=== PATIENT | male | born 1985 | race Asian ===

== ENCOUNTER 2023-11-14 07:22 | Inpatient (IN) | payer MEDICAID ==
[2023-11-14] VITALS (26 sets, daily range): BP systolic 120–165; BP diastolic 77–103; PULSE 76–111; RESP 13–22; TEMP 97.3–98.2; O2SAT 93–100
[~2023-11-14] VITALS: Ht 182.9 cm; Wt 106.6 kg
[~2023-11-14 07:22] MED LIST: NO HOME MEDS
[2023-11-14] MEDS: cefazolin 2gm/D5W 100mL 100 ML IV ONE (07:27)
[2023-11-14] MEDS: tranexamic acid inj. 1,000 MG in normal saline IV soln 100ML IV ONE (07:27)
[2023-11-14] MEDS: famotidine 20mg tablet PO ONE (08:36)
[2023-11-14 08:37] LABS: BASOPHILS % (AUTO) 0.7 % (0-1); EOSINOPHILS # (AUTO) 0.1 X10'3 (0-0.9); EOSINOPHILS % (AUTO) 2.3 % (0-6); LYMPHOCYTES # (AUTO) 2.2 X10'3 (1.1-4.8); MEAN CORPUSCULAR HEMOGLOBIN 29.8 PG (27.0-31.0); MEAN CORPUSCULAR HGB CONC 33.5 g/dL (33.0-36.5); MEAN CORPUSCULAR VOLUME 88.9 FL (78-98); MEAN PLATELET VOLUME 7.6 FL (7.4-10.4); MONOCYTES # (AUTO) 0.6 X10'3 (0-0.9); MONOCYTES % (AUTO) 10.3 % (2-12); NEUTROPHILS # (AUTO) 2.6 X10'3 (1.8-7.7); NEUTROPHILS % (AUTO) 46.7 % (42-75); PRE OP HEMATOCRIT 43.2 % (42.0-52.0); PRE OP HEMOGLOBIN 14.5 g/dL (14.0-17.9); PRE OP PLATELET COUNT 294 X10'3 (140-440); PRE OP WHITE BLOOD COUNT 5.5 10'3 (4.8-10.8); RED BLOOD COUNT 4.86 X10'6 (4.70-6.10); RED CELL DISTRIBUTION WIDTH 12.2 % (11.5-14.5)
[2023-11-14 08:57] LABS: PRE OP PROTIME 10.3 SECONDS (9.0-12.0)
[2023-11-14 09:27] LABS: ALANINE AMINOTRANSFERASE 72 U/L (12-78); ALBUMIN 3.6 G/DL (3.4-5.0); ALBUMIN/GLOBULIN RATIO 0.8 (1.1-1.5); ALKALINE PHOSPHATASE 114 IU/L (46-116); ANION GAP 6 (8-16); ASPARTATE AMINO TRANSFERASE 27 U/L (10-37); BILIRUBIN,TOTAL 0.3 MG/DL (0.1-1.0); BLOOD UREA NITROGEN 16 MG/DL (7-18); BUN/CREATININE RATIO 16.8 (10.0-20.0); CALCIUM 9.3 MG/DL (8.5-10.1); CHLORIDE 103 MMOL/L (99-107); CREATININE 0.95 MG/DL (0.60-1.10); GLUCOSE 101 MG/DL (70-104); POTASSIUM 3.8 MMOL/L (3.5-5.1); SODIUM 140 MMOL/L (135-145); TOTAL CARBON DIOXIDE 30.8 MMOL/L (24-32); TOTAL PROTEIN 7.9 G/DL (6.4-8.2); eCRCL 117 ML/MIN; eGFR 89 ML/MIN
[2023-11-14] MEDS ORDERED: fentaNYL/PF 50MCG/1 ML 2ML syringe ONE (10:36)
[2023-11-14] MEDS ORDERED: midazolam 1 mg/ML 2ml injection ONE (10:36)
[2023-11-14] MEDS ORDERED: bisacodyl 10mg suppository rectal RC PRN (10:40)
[2023-11-14] MEDS ORDERED: ondansetron/PF 4mg/2ml inj IV PRN (10:40)
[2023-11-14] MEDS ORDERED: diphenhydrAMINE 25mg capsule PO PRN (10:40)
[2023-11-14] MEDS ORDERED: magnesium hydroxide 30ml (MOM) UD suspension PO PRN (10:40)
[2023-11-14] MEDS ORDERED: acetaminophen 325mg tablet PO PRN (10:40)
[2023-11-14] MEDS ORDERED: naloxone 0.4 mg/ml inj IV PRN (10:40)
[2023-11-14] MEDS ORDERED: HYDROcodone/acetaminophen 5mg/325mg tablet PO PRN (10:40)
[2023-11-14] MEDS ORDERED: proCHLORperazine 10 MG/2 ml inj IV PRN (10:45)
[2023-11-14] MEDS ORDERED: morphine 2 MG/ML inj. syringe IV PRN (10:45)
[2023-11-14] MEDS ORDERED: ringers solution, lacted 1,000 ML IV SCH (10:45)
[2023-11-14] MEDS ORDERED: labetalol 20mg/4ml (5mg/ml) syringe IV PRN (10:45)
[2023-11-14] MEDS ORDERED: vancomycin 1,000mg inj ONE (10:45)
[2023-11-14] MEDS: acetaminophen 1,000mg/100ml IV 100 ML IV ONE (10:45)
[2023-11-14] MEDS ORDERED: meperidine/PF 25mg/ml syringe IV PRN ×3 (10:45)
[2023-11-14] MEDS ORDERED: hydrALAZINE 20mg/ml inj. IV PRN (10:45)
[2023-11-14] MEDS ORDERED: morphine 4 MG/ML inj SYRINge IV PRN (10:45)
[2023-11-14] MEDS ORDERED: sevoflurane 250ml liquid IH ONE (11:15)
[2023-11-14] MEDS ORDERED: LIDOcaine 1%/PF 5ML 10 MG/ML VIAL ONE (12:14)
[2023-11-14] MEDS ORDERED: ondansetron/PF 4mg/2ml inj ONE (12:14)
[2023-11-14] MEDS ORDERED: LIDOcaine 2% (20mg/ml) 5ml vial ONE (12:14)
[2023-11-14] MEDS ORDERED: fentaNYL /PF 50mcg/ml 5ml ampule ONE (12:14)
[2023-11-14] MEDS ORDERED: ROPIVAcaine 0.5% (5mg/ml) 30ml vial ONE (12:14)
[2023-11-14] MEDS ORDERED: dexamethasone sod phosphate 4mg/ml inj. ONE (12:14)
[2023-11-14] MEDS ORDERED: propofol inj 20 ML IV ONE (12:14)
[2023-11-14] MEDS ORDERED: rocuronium 10mg/ml inj IV ONE (12:14)
[2023-11-14] MEDS: ringers solution, lacted 1,000 ML IV SCH (15:04)
[2023-11-14] MEDS: ondansetron/PF 4mg/2ml inj IV PRN (18:45)
[2023-11-14] MEDS: cefazolin 2gm/D5W 100mL 100 ML IV SCH (19:42)
[2023-11-15] MEDS: HYDROcodone/acetaminophen 5mg/325mg tablet PO PRN (00:32)
[2023-11-15 02:00] VITALS: BP 124/93; PULSE 95; RESP 16; TEMP 98.3; O2SAT 98
[2023-11-15] MEDS: cefazolin 2gm/D5W 100mL 100 ML IV ONE (04:16)
[2023-11-15 06:00] VITALS: BP 147/94; PULSE 101; RESP 13; TEMP 97.5; O2SAT 99
[2023-11-15 07:01] VITALS: BP 154/102; PULSE 83
[2023-11-15 08:00] VITALS: RESP 13; O2SAT 99
[2023-11-15] MEDS ORDERED: HYDROcodone/acetaminophen 10/325mg tab PO ONE (10:20)
[2023-11-15 10:21] VITALS: BP_SYST 164; PULSE 83
[2023-11-15] MEDS: amLODIPine 5mg tablet PO STA (10:21)
[2023-11-15] MEDS ORDERED: oxyCODONE/APAP 10/325mg tablet PO ONE (10:35)
[2023-11-15] MEDS ORDERED: AMLO5TAB16 PO (10:56)
[2023-11-15 11:06] VITALS: RESP 16
[2023-11-15] MEDS: ketorolac trometh 30MG/ML vial 30 MG/ML VIAL IV ONE (11:06)
== END 2023-11-15 12:00 | disposition home or self-care (01) | DRG 315 ==
LOC: PAS IN 07:22 → ORTHO 4S 18:55
PROVIDERS: ADMIT Specialist; ATTEND Specialist
PROC: 0MQ Bursae and Ligaments, Repair (ICD-10-PCS; 2023-11-14)
PROC: 0PRJ0JZ Replacement of Left Radius with Synthetic Substitute, Open Approach (ICD-10-PCS; principal; 2023-11-14 11:15)
DX: S52.122A Displaced fracture of head of left radius, initial encounter for closed fracture (principal); I10 Essential (primary) hypertension; S52.042A Displaced fracture of coronoid process of left ulna, initial encounter for closed fracture; X58.XXXA Exposure to other specified factors, initial encounter; Y93.89 Activity, other specified; Y92.89 Other specified places as the place of occurrence of the external cause; Y99.8 Other external cause status
CPT/HCPCS: 36415; 71045; 73080; 76000; 80053; 85025; 85610; 85730; 93005; 97110; 97161; 97530; A4215; A4565; A4618; A6449; A6455; A7000; C1713; C1776; G0378; J0690; J1100; J1885; J2250; J2405; J2704; J2795; J3010; J3370; J3490; J7120